=== PATIENT | male | born 1940 | race Caucasian/White ===

== ENCOUNTER 2016-07-23 16:38 | Inpatient (IN) | payer BC ==
--- NOTE | ~2016-07-23 | DS ---
Discharge Summary [facility] [address] [place]. [address] NAME: MARIEL PERES : 40 STATUS : DIS IN PAT#: [id number] AGE: 75 ADM/REG DATE : 07/23/16 MR#: [id number] REPORT SERV DATE: 07/31/16 DICTATED BY: DELTA GARCIA DATE: 07/30/16 REPORT STATUS : Draft TRANSCRIBED BY: MODL DATE: 07/30/16 ADMISSION DATE: 07/23/2016 DISCHARGE DATE: 07/30/2016 PRINCIPAL DIAGNOSIS: Hip fracture, status post total hip repair. SECONDARY DIAGNOSES: Atrial fibrillation, hyponatremia due to syndrome of inappropriate secretion of antidiuretic hormone due to selective serotonin re-uptake inhibitors and antiarrhythmic drugs, urinary retention, abnormal liver function tests. HISTORY OF PRESENT ILLNESS: Please see Dr. Maloney's dictation on 07/23/2016. HOSPITAL COURSE: Please see Dr. Shi's dictation on 07/29/2016. Subsequent hospital course. The patient actually passed physical therapy. He did not wish to wait for rehab given the consideration being turned down, wished to go home with home health. Arrangements were made for home health care. He is able to return home on his home medications with Coumadin prescription and follow up for PT/INR with Dr. Ramesh Rodriguez later on this week. Regular appointment with Dr. Rodriguez in one to two weeks, and Dr. Sandhu as scheduled. Greater than 30 minutes were spent with the patient on discharge planning on discharge day. MADDY/ANDREW Delta Garcia M.D. / [id number] CC: Ced Gramajo MD W. Timothy Ballard, M.D.
--- NOTE | ~2016-07-23 | HP ---
History And Physical [place] [id number] [facility] [place]. [address] NAME: MARIEL PERES : 40 STATUS : ADM IN [facility]#: [id number] AGE: 75 ADM/REG DATE : 07/23/16 MR#: [id number] REPORT SERV DATE: 07/23/16 DICTATED BY: AYLA TATE DATE: 07/23/16 REPORT STATUS : Draft TRANSCRIBED BY: MODL DATE: 07/23/16 DATE OF ADMISSION: 07/23/2016 REASON FOR ADMISSION: Right hip fracture. PRIMARY TECHNICAL SALES ENGINEER: Dr. Galindo and also he sees Dr. Rodriguez in the past. HISTORY OF PRESENT ILLNESS: This is a 75-year-old male. He has a known history of acute blood loss anemia, requiring eight units of blood due to a colonic mass. This was surgically removed in the past. Thankfully, it was non-neoplastic with a resultant right hemicolectomy, known history of atrial fibrillation, on chronic Coumadin and chronic amiodarone and chronic carvedilol; history ischemic cardiomyopathy; history of orthostasis; history of Bi V ICD pacer, sees Dr. Curiel for his electrophysiology needs; known history of significant osteoarthritis; general debility. History of V-tach, hypertension, diverticulosis, WAI, history of [place] apparently, appendectomy, vasectomy, excision of a superficial melanoma on his back. The patient comes in after trying to discipline his dog with a newspaper. Apparently, his dog was on the leash. His dog went a certain direction laterally. The patient's osteoarthritis debilitated in such that he was not able to compensate, fell on his right hip, has a ED interpretation of hip fracture, right, has not been read by the radiologist yet. The patient denies any fevers or chills. No recent nausea, no vomiting, no diarrhea, no chest pain, chest pressure, no shortness of breath, mild nonproductive cough. No melena no hematochezia. No dysuria. PAST MEDICAL HISTORY/PAST SURGICAL HISTORY: See above. REVIEW OF SYSTEMS: Done, see HPI. Otherwise, negative. ALLERGIES: NO KNOWN DRUG ALLERGIES. FAMILY HISTORY: Hypertension at least one parent. SOCIAL HISTORY: Former smoker, maybe about 15-pack years at least. No alcohol. No drug use. OBJECTIVE: VITAL SIGNS: Apparently are 122/68, temperature 98.1, pulse 83, respirations 15, 98% on room air. GENERAL: No acute distress. HEENT: PERRLA. No scleral icterus. CARDIOVASCULAR: Regular rate and rhythm. No murmur auscultated. History And Physical [address] [address] NAME: MARIEL PERES : 40 STATUS : ADM IN [facility]#: [id number] AGE: 75 ADM/REG DATE : 07/23/16 MR#: [id number] REPORT SERV DATE: 07/23/16 DICTATED BY: AYLA TATE DATE: 07/23/16 REPORT STATUS : Draft TRANSCRIBED BY: ANDREW DATE: 07/23/16 RESPIRATORY: Decreased breath sounds bibasilarly. ABDOMEN: Nontender, nondistended. Positive bowel sounds. EXTREMITIES: No edema. No ecchymosis. NEURO: A and O x4/4. GCS 15 psych normal affect and mood. PSYCH: Normal affect and mood. LABORATORY DATA: Lab shows a white count 8.6, hemoglobin 12, platelets 254,000. Potassium 4.9; bicarb 27; creatinine 1.21, baseline is less than 1; BUN 15; sodium 131; sugar 126. INR 2.6. T bilirubin 0.5. AST over ALT is 168 over 183. INR 2.6. ASSESSMENT AND PLAN: 1. Right hip fracture, not confirmed radiographically from radiology. Interpretation is still pending. 2. General debility. Exacerbated by osteoarthritis in bilateral knees. 3. History of paroxysmal atrial fibrillation, on chronic anticoagulation. 4. History of ischemic cardiomyopathy. 5. History of orthostasis. PLAN: We will go ahead and admit this patient hopefully the given possible surgical need. As a result, we will ask for orthopedic surgery evaluation. We will reduce his INR hopefully less than 1.6 to permit ortho surgery. As a result, we will give IV vitamin K at this time and placed on heparin drip. Hold 4 hours prior to procedure. The patient denies any chest pain or chest pressure. No palpitations. Does not have any modifiable cardiac risk to preclude surgery at this time. We will resume his home amiodarone dosing which is 200 p.o. b.i.d. Hepatocellular transaminitis, plan, we will go ahead and admit this patient as stated with ortho surgery evaluation. No modifiable cardiac risk factors to preclude surgery giving his hepatocellular transaminitis and concern about possible amiodarone-associated liver toxicity as he is on 200 b.i.d. We will rule out with hepatitis A, B serologies. He had a CT abdomen and pelvis, elucidate his liver parenchyma, readily nephrolithiasis given his pre renal azotemia. Placed n.p.o. except meds and ice chips. IV Dilaudid for pain control. All questions were answered. It took well over 60 minutes to do. Reference [employer] and [employer]. WST/MODL Ayla Tate DO / [id number] History And Physical [address] [address] NAME: MARIEL PERES : 40 STATUS : ADM IN PAT#: [id number] AGE: 75 ADM/REG DATE : 07/23/16 MR#: [id number] REPORT SERV DATE: 07/23/16 DICTATED BY: AYLA TATE DATE: 07/23/16 REPORT STATUS : Draft TRANSCRIBED BY: ANDREW DATE: 07/23/16 CC: Ced Mitchell
--- NOTE | ~2016-07-23 | OP ---
Record Of Operation [facility] [address] [place]. [address] NAME: MARIEL PERES : 40 STATUS : ADM IN PAT#: [id number] AGE: 75 ADM/REG DATE : 07/23/16 MR#: [id number] REPORT SERV DATE: 07/25/16 DICTATED BY: BRAXTON NESBITT DATE: 07/24/16 REPORT STATUS : Draft TRANSCRIBED BY: MODJames DATE: 07/24/16 DATE OF PROCEDURE: 07/24/2016 PREOPERATIVE DIAGNOSIS: Displaced right femoral neck fracture. POSTOPERATIVE DIAGNOSIS: Displaced right femoral neck fracture. PROCEDURE: Uncemented total hip arthroplasty, Tri-Lock. SIDE: Right. ANESTHESIA: See chart. SIZE: See chart. ESTIMATED BLOOD LOSS: About 100 mL. PROCEDURE: The patient was taken to the operating room and placed supine on the table without incident. Anesthetic was induced per the anesthesiologist. A Mckinley catheter was placed by the nurse in the standard sterile technique. The correct side for the procedure was identified by preoperative markings and matched with the consent form. All personnel in the room were in agreement regarding the procedure, patient, and side. The patient was then carefully positioned and carefully padded and prepped and draped in the normal sterile fashion. The patient received prophylactic preoperative antibiotics at the appropriate time. The preoperative x-ray was brought up on the monitor. Again, this was reviewed with the staff in the room. According with the preoperative plan, and angled, an anterolateral incision was made centered over the trochanter extending from proximal posterior to distal anterior. Electrocautery was used to maintain meticulous hemostasis. The IT band was split in line with its fibers. A Charnley retractor was placed over saline moistened laps. A standard anterolateral approach to the hip was carried out dissecting in line with the vastus medialis fibers lifting the inferior 20% of the vastus medialis, proximally the interior 20% of the gluteus medius and gluteus minimus tendons off the anterior capsule. Periosteal elevator was used to elevate soft tissue gently directly off the proximal anterior femoral bone. Appropriate retractors were carefully placed. Complete anterior capsulectomy was performed. The hip was then carefully dislocated with a combination of traction maneuver by the preschool assistant and scooping the ball out of the socket with a Hohmann. A femoral neck osteotomy was marked according to what had been preoperatively planned with a broach as a template. The distance for the femoral neck osteotomy was measured with a ruler. A femoral neck osteotomy was made with an oscillating saw under appropriate retraction. Meticulous hemostasis was again obtained. The leg was then brought up out of the anterior bag and positioned with the lower extremity in external rotation and slight flexion. Acetabular retractors were placed carefully palpating to be sure that they were directly on the bone. The acetabular labrum was excised with electrocautery and rongeur. Pulvinar fat was removed with a large curette and rongeur and again meticulous hemostasis was obtained. Sequential Record Of Operation [facility] [address] [place]. [address] NAME: MARIEL PERES : 40 STATUS : ADM IN [facility]#: [id number] AGE: 75 ADM/REG DATE : 07/23/16 MR#: [id number] REPORT SERV DATE: 07/25/16 DICTATED BY: BRAXTON NESBITT DATE: 07/24/16 REPORT STATUS : Draft TRANSCRIBED BY: ANDREW DATE: 07/24/16 reamers were used in the acetabulum to 1 mm. less than the final size which was chosen. This was felt to give excellent interference fit. The acetabular fossa was then copiously irrigated with pulsatile lavage and actual acetabular component was placed and impacted and checked to make sure it was down snug. The overall alignment was checked. The acetabular data management was then removed. Screws were placed in the standard fashion. A drill, depth gauge and self tapping screw placement taking care not to plunge as the drill holes were carefully placed. A trial liner was then placed and attention directed back to the proximal femur. The leg was placed back into the anterior bag. The proximal femur was prepared using a box chisel following by a T-handled reamer to determine the intramedullary alignment. This was followed by sequential broaches up to the final broach. Once it was seated in the appropriate position, a Calcar reamer was used to plane the proximal femur. Trial reduction was then done with a trial prosthetic ball and neck. A straight edge was used to compare the tip of the trochanter to center of the ball relationship to what had been noted on the preoperative x-ray. Careful reduction was then done of the total hip. Palpation was done to ascertain and compare leg lengths by palpating the nonoperative leg and also by checking soft tissue tension. The stability of the hip was checked in full extension with full external rotation and in full flexion with adduction, flexion and internal rotation. The hip was then re-dislocated with a bone hook. The femoral trial and femoral broach were removed. The acetabulum was then prepared under appropriate retraction by removing the trial liner. A central hole eliminator was placed and tightened. The shell was irrigated out. The actual insert was placed and impacted and then checked to be sure it was down snug with a joker. The leg was again positioned in the bag. The proximal femur exposed, irrigated and the actual thermal prosthesis was taken from the business center representative and impacted. Once it was down, the trunnion was cleansed with a wet and dry lap and the prosthetic thermal head was placed and impacted and checked to be sure it was down snug. The acetabulum was irrigated and reduction was obtained. Again, we checked soft tissue tension, leg length and stability as described above. The hip was closed in a layered fashion with a 5 mm. Mersilene tape placed through a single drill hole in the proximal anterior/superior trochanter reattaching the gluteus medius and minimus fibers. The vastus lateralis, gluteus medius, and gluteus minimus were then closed in a sleeve. Drain was placed between the vastus and the IT band exiting distally anteriorly. The IT band was closed. Subcutaneous closure and skin closure were then obtained. A sterile dressing was applied. The patient was carefully positioned into a supine position and then awakened. The patient was then carefully transferred to the stretcher to be returned to the postoperative care unit without incident. COMPLICATION: None. SPECIMENS: Right femoral head. WTB/MODL Theodore Curiel Record Of Operation [place] [address] [place]. [address] NAME: MARIEL PERES : 40 STATUS : ADM IN [facility]#: [id number] AGE: 75 ADM/REG DATE : 07/23/16 MR#: [id number] REPORT SERV DATE: 07/25/16 DICTATED BY: BRAXTON NESBITT DATE: 07/24/16 REPORT STATUS : Draft TRANSCRIBED BY: ANDREW DATE: 07/24/16 Ced Nesbitt / [id number] CC: Ced Mitchell MD
--- NOTE | ~2016-07-23 | CN ---
Consultation Report [facility] [address] [place]. [address] NAME: MARIEL PERES : 40 STATUS : ADM IN [facility]#: [id number] AGE: 75 ADM/REG DATE : 07/23/16 MR#: [id number] REPORT SERV DATE: 07/24/16 DICTATED BY: PAXTON ALBERT DATE: 07/24/16 REPORT STATUS : Draft TRANSCRIBED BY: ANDREW DATE: 07/24/16 CARDIOLOGY CONSULTATION. DATE OF CONSULTATION: [facility] PHYSICIAN: Dr. Galindo. INDICATION: A 75-year-old man with hip fracture for preoperative evaluation. HISTORY OF PRESENT ILLNESS: Mr. Peres is a 75-year-old man with a history of coronary artery disease and ischemic cardiomyopathy, well known to Dr. Galindo. Overall, he does fairly well from a cardiac standpoint. He has no chest pain or chest discomfort. He has no palpitations, lightheadedness, dizziness, or syncope. He has no lower extremity edema, PND, or orthopnea. He was walking his dog, trying to discipline him with a newspaper, ended up getting pulled with the leash and falling, sustaining a right hip fracture. He is admitted and consultation is requested. REVIEW OF SYSTEMS: As per the history of present illness. Ten other systems are negative. PAST MEDICAL HISTORY: 1. Hypertension. 2. Hypercholesterolemia. 3. Paroxysmal atrial fibrillation. 4. Ventricular tachycardia and ischemic cardiomyopathy, status post biventricular ICD. 5. Coronary artery disease with ischemic cardiomyopathy, LVEF 35%. 6. History of GI bleed. 7. Chronic kidney disease. 8. COPD. 9. Chronic elevated liver function tests. 10.Chronic anticoagulation followed by primary care physician. FAMILY HISTORY: Positive for hypertension. SOCIAL HISTORY: The patient is . Former smoker. No alcohol. ALLERGIES: NO KNOWN DRUG ALLERGIES. HOME MEDICATIONS: Amiodarone 200 mg p.o. b.i.d.; Norvasc 5 daily; aspirin 81 daily; carvedilol 6.25 mg p.o. b.i.d.; Celebrex; Keflex; vitamin D; Colace; levothyroxine; magnesium oxide; mexiletine 150 p.o. q.12 h.; Prilosec; Zoloft; Flomax; Restoril; and Coumadin as directed. PHYSICAL EXAMINATION: VITAL SIGNS: Heart rate is 80, blood pressure 110/62. Consultation Report [place] [id number] [place]. [address] NAME: MARIEL PERES : 40 STATUS : ADM IN PAT#: [id number] AGE: 75 ADM/REG DATE : 07/23/16 MR#: [id number] REPORT SERV DATE: 07/24/16 DICTATED BY: PAXTON ALBERT DATE: 07/24/16 REPORT STATUS : Draft TRANSCRIBED BY: ANDREW DATE: 07/24/16 GENERAL: The patient is a pleasant, elderly white male, in no apparent distress. HEENT: Conjunctivae are anicteric, no xanthelasma, lips without cyanosis. NECK: Supple, normal JVP, carotids +2 without bruit. LUNGS: Clear to auscultation bilaterally, no wheezes, rales or rhonchi. CARDIOVASCULAR: Regular rate and rhythm. Normal S1 and S2. A 1 to 2/6 systolic ejection murmur. PMI is nondisplaced. ABDOMEN: Soft, nontender, nondistended, with normal bowel sounds. No hepatomegaly. EXTREMITIES: No edema. NEURO/PSYCH: Alert and oriented to person, place and time. No obvious neurologic deficits. Mood and affect normal. DATA: EKG pending. IMPRESSION: 1. Right hip fracture. 2. Ischemic cardiomyopathy. LVEF 35%. 3. Ventricular tachycardia, status post ICD. 4. Paroxysmal atrial fibrillation. 5. Chronic kidney disease. 6. COPD. 7. Chronically elevated liver function tests. 8. Preoperative evaluation. RECOMMENDATIONS: Mr. Peres has moderate cardiovascular risk for hip surgery but no absolute contraindication. He is currently well compensated. I agree with holding Coumadin for surgery and restarting it afterward. I recommend changing his Coumadin to once a day given chronically elevated liver function tests and to continue to follow back up in [facility]madin Clinic in the office. We are available if needed and would be happy to assist in his care if he has a change in his status. Otherwise we expect surgery and transferred to rehab afterward and to follow up in the office. DORIE/ANDREW Paxton Albert M.D., Ph.D, F.A.C.C. / [id number] CC: Ced Mitchell
--- NOTE | ~2016-07-23 | HP ---
History And Physical [address] [place]. [address] NAME: MARIEL PERES : 40 STATUS : ADM IN PAT#: [id number] AGE: 75 ADM/REG DATE : 07/23/16 MR#: [id number] REPORT SERV DATE: 07/24/16 DICTATED BY: BRAXTON SANDHU DATE: 07/24/16 REPORT STATUS : Draft TRANSCRIBED BY: MODL DATE: 07/24/16 DATE OF ADMISSION: 07/23/2016 CHIEF COMPLAINT: Right hip pain. HISTORY: This is a 75-year-old male with severely increasing right hip pain, fell and injured his right hip. Denies pain or injury elsewhere. ALLERGIES: NONE. MEDICATIONS: See chart. PAST MEDICAL HISTORY: Hypertension, heart catheterization, myocardial infarction, depression, history of defib pacemaker. PAST SURGICAL HISTORY: Appendectomy, skin cancer removal, vasectomy. SOCIAL HISTORY: . is here. No reported alcohol or illicit drug use. FAMILY HISTORY: No anesthetic complications. REVIEW OF SYSTEMS: As above. PHYSICAL EXAMINATION: GENERAL: He is alert and oriented x3, in no apparent distress. HEENT: Atraumatic, normocephalic. NECK: Supple. CHEST: Symmetric and nontender. LUNGS: Per AA evaluation. CV: Regular. ABDOMEN: Soft. No masses. EXTREMITIES: Decreased range of motion. Severe pain right hip. Compartment supple. 2+ pulses. Short and externally rotated. Skin is intact. Compartment supple. X-RAY: Displaced right femoral neck fracture. ASSESSMENT: Displaced right femoral neck fracture. PLAN: Right total hip arthroplasty. Risks, benefits, etc. explained. The patient wishes to proceed. WTB/MODL History And Physical [address] [place]. [address] NAME: MARIEL PERES : 40 STATUS : ADM IN PAT#: [id number] AGE: 75 ADM/REG DATE : 07/23/16 MR#: [id number] REPORT SERV DATE: 07/24/16 DICTATED BY: BRAXTON SANDHU DATE: 07/24/16 REPORT STATUS : Draft TRANSCRIBED BY: MODL DATE: 07/24/16 W. Moisés Sandhu M.D. / [id number] CC: Ced Mitchell Charles E
--- NOTE | ~2016-07-23 | IDS ---
Interim Discharge Summary [facility] [address] [place]. [address] NAME: MARIEL PERES : 40 STATUS : ADM IN [facility]#: [id number] AGE: 75 ADM/REG DATE : 07/23/16 MR#: [id number] REPORT SERV DATE: 07/29/16 DICTATED BY: MELANIE NICOLE DATE: 07/29/16 REPORT STATUS : Draft TRANSCRIBED BY: MODL DATE: 07/29/16 ADMISSION DATE: 07/23/2016 DISCHARGE DATE: The patient still hospitalized, today is 07/29/2016. He is waiting for placement approval. I personally saw this patient starting 07/24/2016 until 07/29/2016. The patient's current medical problems: 1. Status post fall, status post right hip fracture, status post right total hip arthroplasty done by Dr. Sandhu. 2. Postsurgical hypotension, resolved. Blood pressure in the normal range. 3. Postsurgical voiding dysfunction, resolved. Able to urinate. 4. Anemia of acute blood loss, postsurgical. Stable hemoglobin and hematocrit. 5. History of atrial fibrillation, rate controlled; history of ventricular tachycardia, stable. Seen by electronic test technician Dr. Galindo, he recommended to continue his amiodarone at the same dose as frequency as at home. 6. Hyponatremia, resolved. Currently sodium at the baseline. He has mild chronic hyponatremia, needs to be on fluid restriction 1800 per 24 hours. 7. Chronic Coumadin anticoagulation with INR 1.8. The patient needs to continue as he does it at home. 8. Congestive heart failure, chronic systolic dysfunction, compensated. 9. Hypothyroidism, controlled. 10.History of biventricular pacemaker placement in the past, stable. CONSULTANTS ON THE CASE: Dr. Sandhu of orthopedist and electronic test technician, Dr. Bonilla and Dr. Galindo. Surgery for right total hip arthroplasty done by Dr. Sandhu on 07/24/2016 for displaced right femoral neck fracture. HISTORY OF PRESENT ILLNESS: Per dictation of Dr. Maloney on 07/23/2016. HOSPITAL COURSE: Briefly, the patient had right femoral neck fracture. He was admitted by Dr. Maloney. I saw the patient next day. Ski Patrol Officer was consulted for cardiac risk evaluation. They were okay with surgery. The patient went through the surgery. He had mild anemia and mild postsurgical hypotension. They both resolved. Currently, he has stable hemoglobin and hematocrit, and his blood pressure currently in the normal range. Dr. Galindo, his electronic test technician saw him inpatient. He recommended to continue his amiodarone and mexiletine at the home dose. He had mildly elevated liver enzymes on admission, but they now improved and electronic test technician recommends to continue amiodarone at the same dose and frequency as he was taking at home. He had also hyponatremia. His sodium came down to 128 then with fluid restriction and recovering after surgery increased to 135, which is his baseline. He has chronic hyponatremia. He is doing well. He was able to void now. His INR is 1.8. He needs to continue Coumadin anticoagulation at the rehab. Interim Discharge Summary [place] [id number] [facility] [place]. [address] NAME: MARIEL PERES : 40 STATUS : ADM IN [facility]#: [id number] AGE: 75 ADM/REG DATE : 07/23/16 MR#: [id number] REPORT SERV DATE: 07/29/16 DICTATED BY: MELANIE NICOLE DATE: 07/29/16 REPORT STATUS : Draft TRANSCRIBED BY: ANDREW DATE: 07/29/16 He needs to continue his Norvasc at 5 mg twice a day, aspirin 81 mg a day, amiodarone 200 mg p.o. twice a day, mexiletine 150 mg p.o. b.i.d., Coreg 6.25 p.o. b.i.d., vitamin D 1000 units daily, Colace 100 mg b.i.d., levothyroxine 50 mcg a day, ferrous sulfate 300 mg p.o. b.i.d., magnesium oxide 400 mg daily, omeprazole 40 mg a day, Zoloft 25 mg a day, Flomax 0.4 mg daily, temazepam 30 mg daily. Coumadin, I recommended to take 3 mg a day with PT/INR done daily and then he needs to have adjustment of his Coumadin dose at snf according to his INR. His goal is INR from 2 to 3. The patient recommended to stop Celebrex. Zofran 4 mg p.o. q.4h p.r.n. for pain, MiraLAX one packet p.o. twice a day p.r.n. The patient currently stable after discharge from rehab. He will need to follow up with Dr. Galindo his electronic test technician and primary care physician Dr. Ramesh Rodriguez. My partner will see this patient starting tomorrow morning and if the patient will be approved he may go to rehab. Also Yamilet, nurse practitioner of Dr. Sandhu will see the patient tomorrow morning and she will take care of pain medications if he needs it. MG/MODL Melanie Nicole M.D. / [id number] CC: Ced Mitchell Charles E William Warren, M.D. W. Timothy Ballard, M.D.
[2016-07-23 15:06] LABS: BASOPHILS 0.5 %; BASOPHILS ABSOLUTE 0.04 10/3/uL (0.0-0.16); EOSINOPHILS 0.5 %; EOSINOPHILS ABSOLUTE 0.04 10/3/uL (0.0-0.53); IMMATURE GRANULOCYTES 0.5 %; IMMATURE GRANULOCYTES ABSOLUTE 0.04 10/3/uL (0.0-0.11); LYMPHOCYTES 10.7 %; LYMPHOCYTES ABSOLUTE 0.92 10/3/uL (0.67-4.30); MEAN CORPUS HGB CONC 34.3 g/dL (32.0-36.0); MEAN CORPUSCULAR HEMOGLOB 28.6 pg (26.0-34.0); MEAN PLATELET VOLUME 8.8 fL (9.2-13.0); MONOCYTES 7.6 %; MONOCYTES ABSOLUTE 0.65 10/3/uL (0.21-1.20); NEUTROPHILS 80.2 %; NEUTROPHILS ABSOLUTE 6.91 10/3/uL (2.02-8.40); PLATELET COUNT 254 10/3/uL (150-400); RBC DISTRIBUTION WIDTH 14.3 % (12.0-16.0); RED CELL COUNT 4.19 10/6/uL (4.7-6.1)
[2016-07-23 15:16] LABS: ER CBC TAT 0 Hrs 13 Mins; MANUAL DIFF NO %; MEAN CORPUSCULAR VOLUME 83.5 fL (80-100); WHITE BLOOD CELLS 8.6 10/3/uL (4.5-10.5)
[2016-07-23 15:18] LABS: INTERNATIONAL NORMAL RATI 2.6 UNITS (-); PARTIAL THROMBO TIME 30.6 SEC (22.5-37.2)
[2016-07-23 15:19] LABS: PROTIME (NOT ORD) 27.4 SEC (12.0-14.5)
[2016-07-23 15:21] LABS: A/G RATIO 1.1 (0.7-1.9); ALKALINE PHOSPHATASE 79 U/L (45-117); BUN (BLOOD UREA NITROGEN) 15 MG/DL (6-23); CALCIUM, SERUM 8.5 MG/DL (8.5-10.4); CHLORIDE, SERUM 94 MMOL/L (96-112); CO2 (CARBON DIOXIDE) 27 MMOL/L (24-34); CREATININE 1.21 MG/DL (0.70-1.30); GFR AFRICAN AMERICAN 67 ML/MIN (>=60); GFR NON AFRICAN AMERICAN 58 ML/MIN (>=60); GLOBULIN 3.5 G/DL (2.5-4.1); GLUCOSE, SERUM 126 MG/DL (60-99); SGOT(AST) 168 U/L (5-40); SGPT(ALT) 183 U/L (5-65); SODIUM, SERUM 131 MMOL/L (135-148); TOTAL BILIRUBIN 0.5 MG/DL (0-1.2); TOTAL PROTEIN 7.2 G/DL (6.0-8.5)
[2016-07-23 15:22] LABS: ALBUMIN 3.7 G/DL (3.5-5.0); POTASSIUM, SERUM 4.9 MMOL/L (3.5-5.3)
[~2016-07-23 16:38] MED LIST: ASAB PO; ATEN25 PO; C5 PO; CENTRUM PO; CORDARONE PO; COREG12 PO; COREG25 PO; COUMADIN3 MG; COUMADIN3 MG PO; COUMADIN4 MG; COUMADIN4 MG PO; DIOVAN HC2 PO; DIOVAN HCT320 MG/25 PO; DSS PO; FLOMAX4 PO; HALF81 PO; JANTOVEN5 MG; K500 PO; L40 PO; LEVOTHYROXIN50 MCG PO; LIPITOR20 PO; MAGOX4 PO; MEXILETINE150 MG OR; NORV5 PO; PACERONE200 MG PO; PRILOSEC40 MG PO; RESTORIL30 MG PO; VITAMIN D1000 UNI1 PO; Z300 PO; ZOLOFT25 MG PO; [UNRECOGNIZED DRUG - OTHER] PO
[2016-07-23] MEDS ORDERED: RESTORIL30 MG PO (16:39)
[2016-07-23] MEDS ORDERED: NORV5 PO (16:39)
[2016-07-23] MEDS ORDERED: ZOLOFT25 MG PO (16:39)
[2016-07-23] MEDS ORDERED: CORDARONE PO (16:39)
[2016-07-23] MEDS ORDERED: MEXITIL 150 MG150 MG PO (16:40)
[2016-07-23] MEDS ORDERED: COUMADIN4 MG PO (16:41)
[2016-07-23] MEDS ORDERED: CELEBREX2 PO (16:42)
[2016-07-23] MEDS ORDERED: COREG6 PO (16:42)
[2016-07-24 05:12] LABS: BASOPHILS 0.6 %; BASOPHILS ABSOLUTE 0.04 10/3/uL (0.0-0.16); EOSINOPHILS 1.8 %; EOSINOPHILS ABSOLUTE 0.12 10/3/uL (0.0-0.53); HEMATOCRIT 31.5 % (40.0-51.0); HEMOGLOBIN 10.8 g/dL (13.6-17.8); IMMATURE GRANULOCYTES 0.4 %; IMMATURE GRANULOCYTES ABSOLUTE 0.03 10/3/uL (0.0-0.11); LYMPHOCYTES 13.2 %; MEAN CORPUS HGB CONC 34.3 g/dL (32.0-36.0); MEAN CORPUSCULAR HEMOGLOB 29.3 pg (26.0-34.0); MEAN CORPUSCULAR VOLUME 85.6 fL (80-100); MEAN PLATELET VOLUME 9.1 fL (9.2-13.0); MONOCYTES ABSOLUTE 0.68 10/3/uL (0.21-1.20); NEUTROPHILS ABSOLUTE 5.05 10/3/uL (2.02-8.40); PLATELET COUNT 226 10/3/uL (150-400); RBC DISTRIBUTION WIDTH 14.2 % (12.0-16.0); RED CELL COUNT 3.68 10/6/uL (4.7-6.1); WHITE BLOOD CELLS 6.8 10/3/uL (4.5-10.5)
[2016-07-24 05:13] LABS: MANUAL DIFF NO %
[2016-07-24 05:42] LABS: BUN (BLOOD UREA NITROGEN) 17 MG/DL (6-23); CALCIUM, SERUM 8.3 MG/DL (8.5-10.4); CHLORIDE, SERUM 93 MMOL/L (96-112); CO2 (CARBON DIOXIDE) 24 MMOL/L (24-34); GFR AFRICAN AMERICAN 76 ML/MIN (>=60); GFR NON AFRICAN AMERICAN 65 ML/MIN (>=60); GLUCOSE, SERUM 118 MG/DL (60-99); PHOSPHORUS, SERUM 3.1 MG/DL (2.5-4.5); POTASSIUM, SERUM 4.7 MMOL/L (3.5-5.3); SODIUM, SERUM 128 MMOL/L (135-148)
[2016-07-24 06:42] LABS: PROCALCITONIN 0.11 ng/mL (<0.5)
[2016-07-24 08:54] LABS: INTERNATIONAL NORMAL RATI 1.8 UNITS (-); PROTIME (NOT ORD) 20.9 SEC (12.0-14.5)
[2016-07-24 09:00] LABS: SGOT(AST) 112 U/L (5-40); SGPT(ALT) 137 U/L (5-65); TROPONIN I <0.02 NG/ML (<0.05)
[2016-07-24 11:08] LABS: ASCORBIC ACID (UR NOT ORDER) NEG (NEG); BILIRUBIN, URINE NEGATIVE (NEG); KETONE, URINE NEGATIVE (NEG); LEUKOCYTE ESTERASE(NOT OR NEG (NEG); WBC (NOT ORDERED) (RFLEX) < 1 (0-5)
[2016-07-25 05:13] LABS: INTERNATIONAL NORMAL RATI 1.6 UNITS (-); PROTIME (NOT ORD) 19.3 SEC (12.0-14.5)
[2016-07-25 05:14] LABS: HEMATOCRIT 28.4 % (40.0-51.0); HEMOGLOBIN 9.8 g/dL (13.6-17.8); MANUAL DIFF YES %; MEAN CORPUS HGB CONC 34.5 g/dL (32.0-36.0); MEAN CORPUSCULAR HEMOGLOB 29.8 pg (26.0-34.0); MEAN CORPUSCULAR VOLUME 86.3 fL (80-100); MEAN PLATELET VOLUME 9.8 fL (9.2-13.0); PLATELET COUNT 197 10/3/uL (150-400); RBC DISTRIBUTION WIDTH 14.2 % (12.0-16.0); RED CELL COUNT 3.29 10/6/uL (4.7-6.1); WHITE BLOOD CELLS 7.8 10/3/uL (4.5-10.5)
[2016-07-25 05:28] LABS: BUN (BLOOD UREA NITROGEN) 19 MG/DL (6-23); CALCIUM, SERUM 8.1 MG/DL (8.5-10.4); CHLORIDE, SERUM 95 MMOL/L (96-112); CO2 (CARBON DIOXIDE) 25 MMOL/L (24-34); CREATININE 1.27 MG/DL (0.70-1.30); GFR AFRICAN AMERICAN 64 ML/MIN (>=60); GFR NON AFRICAN AMERICAN 55 ML/MIN (>=60); GLUCOSE, SERUM 112 MG/DL (60-99); PHOSPHORUS, SERUM 3.4 MG/DL (2.5-4.5); POTASSIUM, SERUM 4.9 MMOL/L (3.5-5.3); SODIUM, SERUM 130 MMOL/L (135-148)
[2016-07-25 06:22] LABS: LYMPHOCYTES 5 %; LYMPHOCYTES ABSOLUTE (CALC) 0.39 10/3/uL (0.67-4.30); MONOCYTES 4 %; MONOCYTES ABSOLUTE (CALC) 0.31 10/3/uL (0.21-1.20); SEGMENTED NEUTROPHIL (0) 91 %; TOTAL NUCLEATED CELLS 100
[2016-07-25 06:23] LABS: PLATELET ESTIMATE ADQ (ADEQUATE); RBC MORPHOLOGY NORM (NORMAL)
[2016-07-26 05:36] LABS: INTERNATIONAL NORMAL RATI 1.5 UNITS (-); PROTIME (NOT ORD) 17.5 SEC (12.0-14.5)
[2016-07-26 05:46] LABS: CALCIUM, SERUM 8.4 MG/DL (8.5-10.4); CHLORIDE, SERUM 95 MMOL/L (96-112); CO2 (CARBON DIOXIDE) 23 MMOL/L (24-34); CREATININE 1.19 MG/DL (0.70-1.30); GFR AFRICAN AMERICAN 69 ML/MIN (>=60); GFR NON AFRICAN AMERICAN 59 ML/MIN (>=60); POTASSIUM, SERUM 4.3 MMOL/L (3.5-5.3); SGOT(AST) 69 U/L (5-40); SGPT(ALT) 73 U/L (5-65); SODIUM, SERUM 129 MMOL/L (135-148); TOTAL BILIRUBIN 0.5 MG/DL (0-1.2)
[2016-07-26 05:48] LABS: ALBUMIN 2.7 G/DL (3.5-5.0); ALKALINE PHOSPHATASE 50 U/L (45-117); BUN (BLOOD UREA NITROGEN) 26 MG/DL (6-23); GLOBULIN 2.8 G/DL (2.5-4.1); GLUCOSE, SERUM 138 MG/DL (60-99); TOTAL PROTEIN 5.5 G/DL (6.0-8.5)
[2016-07-26 06:10] LABS: BASOPHILS 0 %; EOSINOPHILS 0.1 %; EOSINOPHILS ABSOLUTE 0.01 10/3/uL (0.0-0.53); HEMOGLOBIN 7.9 g/dL (13.6-17.8); IMMATURE GRANULOCYTES 0.4 %; IMMATURE GRANULOCYTES ABSOLUTE 0.04 10/3/uL (0.0-0.11); LYMPHOCYTES 10.2 %; MEAN CORPUS HGB CONC 34.8 g/dL (32.0-36.0); MEAN CORPUSCULAR HEMOGLOB 29.7 pg (26.0-34.0); MEAN CORPUSCULAR VOLUME 85.3 fL (80-100); MEAN PLATELET VOLUME 9.6 fL (9.2-13.0); MONOCYTES 8.6 %; MONOCYTES ABSOLUTE 0.84 10/3/uL (0.21-1.20); NEUTROPHILS 80.7 %; NEUTROPHILS ABSOLUTE 7.92 10/3/uL (2.02-8.40); PLATELET COUNT 171 10/3/uL (150-400); RBC DISTRIBUTION WIDTH 14.3 % (12.0-16.0); RED CELL COUNT 2.66 10/6/uL (4.7-6.1); WHITE BLOOD CELLS 9.8 10/3/uL (4.5-10.5)
[2016-07-26 06:15] LABS: HEMATOCRIT 22.7 % (40.0-51.0); MANUAL DIFF NO %
[2016-07-27 06:01] LABS: INTERNATIONAL NORMAL RATI 1.5 UNITS (-); PROTIME (NOT ORD) 18.3 SEC (12.0-14.5)
[2016-07-27 06:10] LABS: BUN (BLOOD UREA NITROGEN) 21 MG/DL (6-23); CALCIUM, SERUM 8.2 MG/DL (8.5-10.4); CHLORIDE, SERUM 95 MMOL/L (96-112); CO2 (CARBON DIOXIDE) 26 MMOL/L (24-34); CREATININE 1.06 MG/DL (0.70-1.30); GFR AFRICAN AMERICAN 79 ML/MIN (>=60); GFR NON AFRICAN AMERICAN 68 ML/MIN (>=60); GLUCOSE, SERUM 92 MG/DL (60-99); SODIUM, SERUM 129 MMOL/L (135-148)
[2016-07-27 06:55] LABS: BASOPHILS 0.3 %; BASOPHILS ABSOLUTE 0.02 10/3/uL (0.0-0.16); EOSINOPHILS 1.9 %; EOSINOPHILS ABSOLUTE 0.15 10/3/uL (0.0-0.53); HEMATOCRIT 25.6 % (40.0-51.0); HEMOGLOBIN 8.9 g/dL (13.6-17.8); IMMATURE GRANULOCYTES 0.4 %; IMMATURE GRANULOCYTES ABSOLUTE 0.03 10/3/uL (0.0-0.11); LYMPHOCYTES 18.9 %; LYMPHOCYTES ABSOLUTE 1.46 10/3/uL (0.67-4.30); MANUAL DIFF NO %; MEAN CORPUS HGB CONC 34.8 g/dL (32.0-36.0); MEAN CORPUSCULAR VOLUME 86.2 fL (80-100); MEAN PLATELET VOLUME 9.6 fL (9.2-13.0); MONOCYTES 9.5 %; MONOCYTES ABSOLUTE 0.73 10/3/uL (0.21-1.20); NEUTROPHILS ABSOLUTE 5.33 10/3/uL (2.02-8.40); PLATELET COUNT 166 10/3/uL (150-400); RBC DISTRIBUTION WIDTH 14.7 % (12.0-16.0); RED CELL COUNT 2.97 10/6/uL (4.7-6.1); WHITE BLOOD CELLS 7.7 10/3/uL (4.5-10.5)
[2016-07-28 05:21] LABS: INTERNATIONAL NORMAL RATI 1.7 UNITS (-); PROTIME (NOT ORD) 19.5 SEC (12.0-14.5)
[2016-07-28 05:23] LABS: HEMATOCRIT 25.5 % (40.0-51.0); HEMOGLOBIN 8.9 g/dL (13.6-17.8)
[2016-07-28 05:26] LABS: CALCIUM, SERUM 7.9 MG/DL (8.5-10.4); CHLORIDE, SERUM 95 MMOL/L (96-112); CO2 (CARBON DIOXIDE) 27 MMOL/L (24-34); CREATININE 0.93 MG/DL (0.70-1.30); GFR AFRICAN AMERICAN 93 ML/MIN (>=60); GFR NON AFRICAN AMERICAN 80 ML/MIN (>=60); GLUCOSE, SERUM 89 MG/DL (60-99); POTASSIUM, SERUM 4.3 MMOL/L (3.5-5.3); SODIUM, SERUM 132 MMOL/L (135-148)
[2016-07-28 05:27] LABS: BUN (BLOOD UREA NITROGEN) 15 MG/DL (6-23)
[2016-07-29 04:44] LABS: HEMATOCRIT 24.5 % (40.0-51.0); HEMOGLOBIN 8.4 g/dL (13.6-17.8)
[2016-07-29 05:01] LABS: BUN (BLOOD UREA NITROGEN) 17 MG/DL (6-23); CALCIUM, SERUM 8.1 MG/DL (8.5-10.4); CHLORIDE, SERUM 93 MMOL/L (96-112); CO2 (CARBON DIOXIDE) 29 MMOL/L (24-34); CREATININE 1.01 MG/DL (0.70-1.30); GFR AFRICAN AMERICAN 84 ML/MIN (>=60); GFR NON AFRICAN AMERICAN 72 ML/MIN (>=60); GLUCOSE, SERUM 102 MG/DL (60-99); POTASSIUM, SERUM 4.3 MMOL/L (3.5-5.3); SODIUM, SERUM 130 MMOL/L (135-148)
[2016-07-29 05:06] LABS: INTERNATIONAL NORMAL RATI 1.8 UNITS (-); PROTIME (NOT ORD) 20.4 SEC (12.0-14.5)
[2016-07-30 04:57] LABS: HEMATOCRIT 24.7 % (40.0-51.0); HEMOGLOBIN 8.3 g/dL (13.6-17.8)
[2016-07-30 05:03] LABS: INTERNATIONAL NORMAL RATI 2.2 UNITS (-); PROTIME (NOT ORD) 24.1 SEC (12.0-14.5)
[2016-07-30] MEDS ORDERED: NORCO1 TA1 PO (13:29)
[2016-07-30] MEDS ORDERED: FERROUS SULF325 M1 PO (13:29)
[2016-07-30] MEDS ORDERED: COUMADIN3 MG (13:30)
[2016-09-17] MEDS ORDERED: MAG OXIDE250 MG PO (19:08)
[2016-09-17] MEDS ORDERED: COREG6 PO (19:08)
[2016-09-17] MEDS ORDERED: SYN.05 PO (19:08)
[2016-09-17] MEDS ORDERED: VITAMIN D31000 UNIT PO (19:08)
[2016-09-17] MEDS ORDERED: FERROUS SULF325 M1 PO (19:09)
[2016-09-17] MEDS ORDERED: CORDARONE PO (19:09)
[2016-09-17] MEDS ORDERED: DSS PO (19:09)
[2016-09-17] MEDS ORDERED: CENTRUM PO (19:09)
[2016-09-17] MEDS ORDERED: ZOLOFT25 MG PO (19:09)
[2016-09-17] MEDS ORDERED: FLOMAX4 PO (19:10)
[2016-09-17] MEDS ORDERED: COUMADIN4 MG PO (19:10)
[2016-09-17] MEDS ORDERED: PRILOSEC40 MG PO (19:10)
[2016-09-17] MEDS ORDERED: ASAB PO (19:10)
[2016-09-17] MEDS ORDERED: MEXILETINE 150MG CAP PO (19:11)
== END 2016-07-30 15:33 | disposition home health service (06) | DRG 470 ==
LOC: ER 16:38 → 3SO 19:49
PROVIDERS: Emergency Medicine; Hospitalist; Internal Medicine; Specialist
PROC: 0SR902A Replacement of Right Hip Joint with Metal on Polyethylene Synthetic Substitute, Uncemented, Open Approach (ICD-10-PCS; principal; 2016-07-23)
PROC: 30233N1 Transfusion of Nonautologous Red Blood Cells into Peripheral Vein, Percutaneous Approach (ICD-10-PCS; 2016-07-26)
DX: S72.001A Fracture of unspecified part of neck of right femur, initial encounter for closed fracture (principal); N17.9 Acute kidney failure, unspecified; E22.2 Syndrome of inappropriate secretion of antidiuretic hormone; I48.0 Paroxysmal atrial fibrillation; I50.22 Chronic systolic (congestive) heart failure; D62 Acute posthemorrhagic anemia; I25.5 Ischemic cardiomyopathy; Z79.01 Long term (current) use of anticoagulants; E03.9 Hypothyroidism, unspecified; E11.9 Type 2 diabetes mellitus without complications; N40.0 Benign prostatic hyperplasia without lower urinary tract symptoms
CPT/HCPCS: 36415; 71010; 72170; 73090-RT; 73120; 73502-RT; 80048; 80053; 81001; 82962; 83036; 83735; 84100; 84145; 84443; 84450; 84460; 84484; 85014; 85018; 85025; 85610; 85730; 86850; 86900; 86901; 86920; 87641; 88305; 88311; 93005; 96374; 96375; 97110-GP; 97116-GP; 97161-GP; 97165-GO; 97530-GP; 97535-GO; 99285; A9270-GY; C1713; C1776; C9113; J0690; J1170; J1885; J1940; J2250; J2274; J2370; J2405; J2710; J2795; J3010; J3430; P9016

== ENCOUNTER 2016-09-17 20:05 | Inpatient (IN) | payer BC ==
--- NOTE | ~2016-09-17 | CN ---
Consultation Report [facility] [address] [place]. [address] NAME: MARIEL PERES : 40 STATUS : ADM IN PAT#: [id number] AGE: 75 ADM/REG DATE : 09/17/16 MR#: [id number] REPORT SERV DATE: 09/18/16 DICTATED BY: DOUGLAS CARTAGENA DATE: 09/18/16 REPORT STATUS : Draft TRANSCRIBED BY: MODL DATE: 09/18/16 CONSULTATION NOTE DATE OF CONSULTATION: 09/18/2016 REASON FOR REQUEST: Evaluation for possible bowel obstruction. HISTORY OF PRESENT ILLNESS: Mr. Peres is a 75-year-old gentleman with multiple medical problems, who presented to the emergency room with a chief complaint of some nausea and vomiting. He states he has had episodes of this for quite some time, but they have never lasted this long. Usually, they only last 6-8 hours and then spontaneously resolve. He does not report any associated abdominal pain with this nausea nor does he report any associated abdominal distention. He denies any precipitating factors or alleviating factors, and he has never sought medical care for this nausea and vomiting. He has a very extensive cardiac history, including atrial fibrillation and congestive heart failure. He was actually an established patient of Dr. Horace Elizabeth who did a colon resection on him less than two years ago and this was complicated by major postop bleed according to the patient and his family and required 12 units of blood and according to him he almost from this surgery. He is on Coumadin for atrial fibrillation. A CT scan was obtained in the emergency room demonstrated nonspecific bowel dilatation, but a transition point could not be identified as there was no oral contrast administered. He reports his last bowel movement was actually yesterday and has been having flatus and states that currently he has absolutely no nausea or vomiting or any abdominal pain. He denies any fever or chills. No other associated symptoms or issues. He is recovering from recent hip surgery that he had just last July after a fall. This was done at this facility by Dr. Sandhu. PAST MEDICAL HISTORY: Significant for atrial fibrillation, hypertension, hyperlipidemia, sleep apnea, coronary artery disease, congestive heart failure, COPD, hypothyroidism. PREVIOUS SURGERIES: Include an appendectomy years ago. The aforementioned right hemicolectomy done by Dr. Horace Elizabeth less than two years ago and recent right hip surgery and he has had a pacemaker defibrillator inserted. Dr. Galindo is his home health rn. ALLERGIES: NO KNOWN DRUG ALLERGIES. MEDICATIONS: Medications taken at home include amiodarone, aspirin, carvedilol, warfarin, vitamins, Colace, iron, Synthroid, magnesium, Prilosec, and Flomax. SOCIAL HISTORY: Denies tobacco or alcohol use. He lives in [place] with his approximately an hour from here. FAMILY HISTORY: Significant for coronary artery disease, diabetes, and hypertension. REVIEW OF SYSTEMS: Consultation Report [place] [address] [facility] [place]. [address] NAME: MARIEL PERES : 40 STATUS : ADM IN PAT#: [id number] AGE: 75 ADM/REG DATE : 09/17/16 MR#: [id number] REPORT SERV DATE: 09/18/16 DICTATED BY: DOUGLAS CARTAGENA DATE: 09/18/16 REPORT STATUS : Draft TRANSCRIBED BY: ANDREW DATE: 09/18/16 Comprehensive 12-point review of systems obtained and completely negative other than what is mentioned in the history of present illness. PHYSICAL EXAMINATION: VITAL SIGNS: Temperature is 97.1, pulse 81, respirations 18, blood pressure 142/83. GENERAL: He is an elderly gentleman who is awake and alert, in no acute cardiopulmonary distress. HEENT: Pupils are equal, round, and reactive to light. Extraocular movements are intact. Conjunctivae not icteric. NECK: Supple. He has no jugular venous distention. No carotid bruits. No cervical lymphadenopathy. PULMONARY: Normal respiratory effort. Breath sounds are clear. CARDIOVASCULAR: Regular rate. ABDOMEN: Soft and completely nondistended and nontender. EXTREMITIES: Reveal no clubbing, cyanosis, or edema. LABORATORY DATA: White blood cell count 6.4, hematocrit 38, platelet count 210. Sodium 133, potassium 4.1, chloride 99, CO2 of 27, BUN 14, creatinine 1.3, glucose 98, albumin 3.1. A CT scan of the abdomen and pelvis without oral contrast or IV contrast was reviewed and states nonspecific bowel dilatation, but no obvious transition point to my read. No free air. He has a rectus diastasis and a questionable small ventral hernia seen on CT that is barely palpable on physical exam. ASSESSMENT: 1. Possible partial small bowel obstruction. 2. Atrial fibrillation. 3. Congestive heart failure. PLAN: Currently, he has a benign exam. He is not very distended, and a CT scan is limited without the benefit of contrast. My recommendation is to proceed with Gastrografin small bowel followthrough to evaluate him further to see if he truly has a mechanical obstruction. He also appeared to have a distended gallbladder on CT, but no obvious gallstones were seen, and an ultrasound of his gallbladder should be obtained as well. For the time being, I would hold his Coumadin until we are certain he is not going to require any surgical intervention. I want to thank you for this consultation. PHAM/ANDREW Douglas Cartagena M.D. Consultation Report [address] [address] NAME: MARIEL PERSE : 40 STATUS : ADM IN PAT#: [id number] AGE: 75 ADM/REG DATE : 09/17/16 MR#: [id number] REPORT SERV DATE: 09/18/16 DICTATED BY: DOUGLAS CARTAGENA DATE: 09/18/16 REPORT STATUS : Draft TRANSCRIBED BY: ANDREW DATE: 09/18/16 / [id number] CC: Ced Mitchell Charles E
--- NOTE | ~2016-09-17 | DS ---
Discharge Summary [facility] [address] [facility] [place]. [address] NAME: MARIEL LOPEZ : 40 STATUS : DIS IN PAT#: [id number] AGE: 75 ADM/REG DATE : 09/17/16 MR#: [id number] REPORT SERV DATE: 09/19/16 DICTATED BY: MELANIE NICOLE DATE: 09/19/16 REPORT STATUS : Draft TRANSCRIBED BY: MODL DATE: 09/19/16 ADMISSION DATE: 09/17/2016 DISCHARGE DATE: 09/19/2016 DIAGNOSES ON ADMISSION: 1. Partial small bowel obstruction. 2. Mild acute kidney injury. 3. Hyponatremia. 4. Transaminitis, chronic in nature. 5. History of chronic congestive heart failure, systolic dysfunction, being compensated. DIAGNOSES ON DISCHARGE: 1. Abdominal pain, nausea, and vomiting, present on admission, resolved. No evidence of small bowel obstruction. Able to have bowel movements and had normal Gastrografin study. Recommended to be discharged per General Surgery. 2. Acute kidney injury, improved, mild prerenal azotemia. The patient needs to drink more fluids. Will check his BMP next week, on 09/26/2016, per primary care physician, Dr. Ramesh Rodriguez. 3. Hyponatremia, present on admission, resolved. 4. Chronic transaminitis, mildly elevated AST and ALT, chronic likely related to amiodarone. 5. Congestive heart failure, chronic systolic dysfunction, compensated. 6. Atrial fibrillation, rate controlled, chronically on Coumadin with therapeutic INR. 7. History of biventricular pacer functioning normally. CONSULTANTS ON THE CASE: General Surgery, Dr. Douglas Morrissey and Dr. Elizabeth. IMAGING STUDIES DONE DURING THIS HOSPITALIZATION: CT of the abdomen and pelvis done on 09/17/2016: Dilated proximal mid small bowel with nondilated distal small bowel indicating probable partial small bowel obstruction. Distinct transition is not identified. Cardiomegaly, calcific atherosclerosis, AICD, minimal nonobstructing right nephrolithiasis, diverticulosis with no evidence of diverticulitis, right hip prosthesis, which produces artifact, limited evaluation of the pelvis. Ultrasound on the gallbladder done on 09/18/2016: Negative examination of the gallbladder, nonobstructing right renal stone. Chest x-ray done on 09/17/2016: No evidence of cardiopulmonary process. Small bowel follow-through series done on 09/18/2016: Mild distended jejunal loops of bowel with normal caliber ileum. Clear transition point is not identified. No significant mechanical obstruction as the colon is reached by the 90 minute time point, within normal limits. Small bowel transit time. HISTORY OF PRESENT ILLNESS: Briefly, Mr. Lopez is a very pleasant 75-year-old male who was admitted by my colleague, Dr. Cristhian Macdonald on 09/17/2016 with complaints of abdominal pain, Discharge Summary [address] [address] NAME: MARIEL LOPEZ : 40 STATUS : DIS IN PAT#: [id number] AGE: 75 ADM/REG DATE : 09/17/16 MR#: [id number] REPORT SERV DATE: 09/19/16 DICTATED BY: MELANIE NICOLE DATE: 09/19/16 REPORT STATUS : Draft TRANSCRIBED BY: ANDREW DATE: 09/19/16 nausea, and vomiting. For the details, see history of present illness dictated by Dr. Macdonald. HOSPITAL COURSE: 1. Briefly, the patient was started on IV fluid hydration as well as he was kept n.p.o. initially and General Surgery was consulted regarding suspicion of possible small bowel obstruction. The patient was evaluated by Dr. Morrissey yesterday and he did not think that there is small bowel obstruction. The patient had small bowel follow-through which looks normal as well as he was started on clear liquids yesterday, which he tolerated very well. The patient was evaluated today by Dr. Elizabeth, his surgeon, and he recommended to give him regular diet, and if the patient is able to eat regular diet, he should be discharged. The patient was able to tolerate regular diet. He does not have any nausea, no vomiting, no abdominal pain, and he is able to eat, so he was discharged today problem. 2. The patient had chronically elevated liver enzymes. On admission, 09/17/2010, his ALT was 136, AST was 100. Today on 09/19/2016, ALT was 131, AST 125. This is a chronic problem and he had similar elevation during previous hospitalization when he had a hip fracture. It was strongly suspected that these elevated liver enzymes are related to his amiodarone, which he takes for ventricular arrhythmia. During last hospitalization, it was also mentioned to his import/export analyst Dr. Galindo who recommended to continue his amiodarone at a dose of once a day and they are also going to monitor his liver enzymes. I recommended the patient to check his liver enzymes, AST and ALT, per primary care physician, Dr. Ramesh Rodriguez. Appointment was made for the patient on 09/26/2016 with Ramesh Rodriguez. As well as he had mild prerenal azotemia secondary to dehydration and his creatinine on admission was 1.57, yesterday was 1.31, today 1.55 since he is already eating and drinking. The patient was recommended to drink plenty of fluids and he was recommended to follow up with Dr. Ramesh Rodriguez on 09/26/2010 to check his BMP again. This was explained to the patient and his . His INR was therapeutic during this hospitalization and it was 2.2. 3. The patient is doing well. He also is supposed to follow up with Dr. Galindo in two weeks. Appointment is made on 10/03/2016 at 8:15. DISCHARGE MEDICATIONS: The patient needs to continue his home medications, which include aspirin 81 mg daily, amiodarone 200 mg a day, carvedilol 6.25 mg p.o. b.i.d., vitamin D 1000 units a day, Colace 200 mg a day, ferrous sulfate 325 p.o. b.i.d., levothyroxine 50 mcg p.o. daily, magnesium oxide 500 mg a day, omeprazole 40 mg a day, Zoloft 25 mg a day, Flomax 0.4 mg a day, multivitamins once a day, Coumadin 4 mg a day, and mexiletine 150 mg p.o. b.i.d. DISPOSITION: The patient was discharged in stable condition. Everything was discussed with the patient and his . I spent 45 minutes on discharge. MG/MODL Discharge Summary [address] [place]. [address] NAME: MARIEL LOPEZ : 40 STATUS : DIS IN PAT#: [id number] AGE: 75 ADM/REG DATE : 09/17/16 MR#: [id number] REPORT SERV DATE: 09/19/16 DICTATED BY: MELANIE NICOLE DATE: 09/19/16 REPORT STATUS : Draft TRANSCRIBED BY: MODJames DATE: 09/19/16 Melanie Nicole M.D. / [id number] CC: Ced Mitchell,RAMESH Galindo M.D.
--- NOTE | ~2016-09-17 | HP ---
History And Physical [facility] [address] [place]. [address] NAME: MARIEL PERES : 40 STATUS : ADM IN [facility]#: [id number] AGE: 75 ADM/REG DATE : 09/17/16 MR#: [id number] REPORT SERV DATE: 09/18/16 DICTATED BY: SUSIE TORRES DATE: 09/17/16 REPORT STATUS : Draft TRANSCRIBED BY: MODJames DATE: 09/17/16 DATE OF ADMISSION: 09/17/2016 POINT OF ENTRY: [facility]. PRIMARY PLASTIC PRESS OPERATOR: Paxton Galindo M.D. CHIEF COMPLAINT: Abdominal pain, nausea, and vomiting. HISTORY OF PRESENT ILLNESS: Mr. Peres is a 75-year-old gentleman with a history of atrial fibrillation, on Coumadin; as well as chronic systolic congestive heart failure; hypertension; hyperlipidemia; and multiple other medical comorbidities who presents to the emergency department today with a two-day history of diffuse abdominal pain with nausea and vomiting, inability to tolerate oral intake. The patient states that his symptoms began around lunchtime on Friday. Shortly after consuming his lunch, he vomited back up again. Beginning then, he has been unable to tolerate any significant solid or liquid intake. Also describes some diffuse crampy abdominal pain. Reports his last bowel was yesterday, was very small in nature, has not had a bowel today. Denies any memory of any flatus today as well. Given his persistent difficulties with nausea, vomiting, and inability to tolerate any oral intake, he presented to the emergency department. The patient states that for the past few months he has had a very similar spells of nausea, vomiting, and inability to tolerate oral intake; however, they are very short lived and usually self resolved, approximately 6 to 10 hours in nature and has not seen a physician for this. Initial evaluation in the emergency department is notable for hyponatremia of 127 and creatinine of 1.57. He has some transaminitis. CT scan of the abdomen and pelvis also shows a partial low-grade small bowel obstruction. The patient was subsequently admitted to the Hospitalist Service for further evaluation and management. The patient denies any fevers, night sweats, chills, chest pain, palpitations, shortness of breath, cough, sputum production, diarrhea, constipation, dysuria, lower extremity edema, melena, hematochezia, or hemoptysis. Comprehensive review of systems otherwise negative unless listed in the history of present illness. PREVIOUS MEDICAL HISTORY: 1. Atrial fibrillation, on Coumadin. 2. Hypertension. 3. Hyperlipidemia. 4. Obstructive sleep apnea, on BiPAP. 5. Coronary artery disease with prior GA. 6. Chronic systolic congestive heart failure, ejection fracture of 35%, status post BiV ICD. History And Physical [address] [address] NAME: MARIEL PERES : 40 STATUS : ADM IN [facility]#: [id number] AGE: 75 ADM/REG DATE : 09/17/16 MR#: [id number] REPORT SERV DATE: 09/18/16 DICTATED BY: SUSIE TORERS DATE: 09/17/16 REPORT STATUS : Draft TRANSCRIBED BY: ANDREW DATE: 09/17/16 7. COPD. 8. Hypothyroidism. 9. Chronic hyponatremia. 10.Melanoma, status post excision. 11.Benign colonic mass, status post right hemicolectomy. PAST SURGICAL HISTORY: 1. Appendectomy. 2. Right hemicolectomy. 3. BiV ICD. 4. Right total hip. ALLERGIES: NO KNOWN DRUG ALLERGIES. HOME MEDICATIONS: 1. Amiodarone 200 mg q.h.s. 2. Aspirin 81 mg daily. 3. Carvedilol 6.25 mg b.i.d. 4. Vitamin D 1000 units daily. 5. Colace 200 mg daily. 6. Ferrous sulfate 325 mg b.i.d. 7. Levothyroxine 50 mcg daily. 8. Magnesium oxide 500 mg daily. 9. Multivitamin one tablet daily. 10.Omeprazole 40 mg daily. 11.Zoloft 25 mg daily. 12.Flomax 0.4 mg q.h.s. 13.Mexiletine 150 mg b.i.d. 14.Coumadin 4 mg q.h.s. SOCIAL HISTORY: Denies any tobacco, alcohol, or illicits. He does have a remote history of smoking, but quit about 35 years ago. FAMILY MEDICAL HISTORY: Mother with coronary artery disease and diabetes. Father with coronary artery disease. Siblings, coronary artery disease and hypertension. LABS AND IMAGIN. White count 8.5, hemoglobin is 14.4, hematocrit is 41.6, and platelet count is 288. INR 1.9. 2. Sodium 127, potassium 4.0, chloride 90, carbon dioxide 31, BUN 13, creatinine 1.57, glucose is 135, calcium is 9.5, protein is 7.4, albumin is 3.7, bilirubin is 1.3, ALT is 136, AST is 100, and alkaline phosphatase is 98. 3. Lipase is 110. 4. CT scan of the abdomen and pelvis shows a dilated proximal and mid small bowel with nondilated distal small bowel indicating probable partial small bowel obstruction, distinct transition is not identified. History And Physical [address] [address] NAME: MARIEL PERES : 40 STATUS : ADM IN [facility]#: [id number] AGE: 75 ADM/REG DATE : 09/17/16 MR#: [id number] REPORT SERV DATE: 09/18/16 DICTATED BY: SUSIE TORRES DATE: 09/17/16 REPORT STATUS : Draft TRANSCRIBED BY: ANDREW DATE: 09/17/16 PHYSICAL EXAMINATION: VITAL SIGNS: Temperature is 97.8 degrees Fahrenheit, pulse is 84, respirations 18, saturating 98% on room air, and blood pressure is 96/64. On recheck, blood pressure now 120/76 and pulse of 80. GENERAL: The patient is awake, alert, in no acute distress, and resting comfortably in bed. He is a well-developed, well-nourished, elderly male. at bedside. HEENT: Atraumatic and normocephalic. Slightly dry mucous membranes. Pupils are equal, round, reactive to light and accommodation. Extraocular eye movements are intact. No scleral icterus. NECK: No jugular venous distention. No carotid bruits. CARDIAC: Regular rate and rhythm. No murmurs, rubs, or gallops. Normal S1, normal S2. LUNGS: Clear to auscultation bilaterally. No wheezes, rhonchi, or crackles. ABDOMEN: Soft. It is diffusely tender to palpation primarily over the epigastrium as well as bilateral lower quadrants. Does have some hypoactive bowel sounds throughout, but no rebound, guarding, or rigidity. EXTREMITIES: Warm and well perfused. No cyanosis, clubbing, or edema. SKIN: Warm and dry. PSYCH: Affect appropriate. NEURO: Alert and oriented x3. Cranial nerves II through XII are grossly intact. Speech is normal. Gait not assessed. ASSESSMENT: Mr. Peres is a 75-year-old gentleman who presents with a two-day history of diffuse abdominal pain with nausea, vomiting, inability to tolerate oral intake and found to have a probable low-grade partial small bowel obstruction as well as acute kidney injury. PROBLEM LIST: 1. Partial small bowel obstruction. 2. Acute kidney injury. 3. Hyponatremia. 4. Transaminitis. 5. History of chronic systolic congestive heart failure. PLAN: 1. Partial small bowel obstruction. We will make the patient nothing by mouth for bowel rest. Provide IV fluid hydration. We will consult General Surgery for assistance with evaluation and management. Hold off on NG tube at this time as the patient is not having any active nausea or vomiting. 2. Acute kidney injury, likely due to poor oral intake. We will hold nephrotoxic medications. Provide gentle IV fluid hydration. Checking urinalysis as well as urine lytes. CT of abdomen and pelvis obstruction. 3. Hyponatremia. 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 Should provide some gentle IV fluid hydration. We will hold off on further workup at this time. 4. Transaminitis. The patient also had transaminitis during his admission back in July. Does not appear to be any workup at this time. However, CT of the abdomen and pelvis is unremarkable for any liver abnormalities. We will check viral hepatitis panel as History And Physical [address] [address] NAME: MARIEL PERES : 40 STATUS : ADM IN [facility]#: [id number] AGE: 75 ADM/REG DATE : 09/17/16 MR#: [id number] REPORT SERV DATE: 09/18/16 DICTATED BY: SUSIE TORRES DATE: 09/17/16 REPORT STATUS : Draft TRANSCRIBED BY: MODJames DATE: 09/17/16 well as a right upper quadrant ultrasound. Of note, the patient is on amiodarone for potential medication-induced transaminitis. 5. Chronic systolic congestive heart failure. The patient currently appears euvolemic at this time. We will provide gentle IV fluid hydration given his n.p.o. status and SWAPNIL. Checking a BNP, chest x-ray, as well as EKG. 6. DVT prophylaxis. The patient is on Coumadin, to be managed by Pharmacy. 7. Code status. The patient wished to be full code. JCB/MODL Susie Torres MD / [id number] CC: Ced Mithcell,AJ Galindo M.D.
[2016-09-17 16:14] LABS: BASOPHILS 0.1 %; BASOPHILS ABSOLUTE 0.01 10/3/uL (0.0-0.16); EOSINOPHILS 0.1 %; EOSINOPHILS ABSOLUTE 0.01 10/3/uL (0.0-0.53); ER CBC TAT 0 Hrs 07 Mins; HEMATOCRIT 41.6 % (40.0-51.0); HEMOGLOBIN 14.4 g/dL (13.6-17.8); IMMATURE GRANULOCYTES 0.2 %; IMMATURE GRANULOCYTES ABSOLUTE 0.02 10/3/uL (0.0-0.11); LYMPHOCYTES ABSOLUTE 1.28 10/3/uL (0.67-4.30); MANUAL DIFF NO %; MEAN CORPUS HGB CONC 34.6 g/dL (32.0-36.0); MEAN CORPUSCULAR HEMOGLOB 30.9 pg (26.0-34.0); MEAN CORPUSCULAR VOLUME 89.3 fL (80-100); MEAN PLATELET VOLUME 9.1 fL (9.2-13.0); MONOCYTES 8.3 %; MONOCYTES ABSOLUTE 0.71 10/3/uL (0.21-1.20); NEUTROPHILS 76.3 %; NEUTROPHILS ABSOLUTE 6.48 10/3/uL (2.02-8.40); PLATELET COUNT 288 10/3/uL (150-400); RBC DISTRIBUTION WIDTH 14.7 % (12.0-16.0); RED CELL COUNT 4.66 10/6/uL (4.7-6.1); WHITE BLOOD CELLS 8.5 10/3/uL (4.5-10.5)
[2016-09-17 16:28] LABS: ALBUMIN 3.7 G/DL (3.5-5.0); ALKALINE PHOSPHATASE 98 U/L (45-117); BUN (BLOOD UREA NITROGEN) 13 MG/DL (6-23); CALCIUM, SERUM 9.5 MG/DL (8.5-10.4); CHLORIDE, SERUM 90 MMOL/L (96-112); CO2 (CARBON DIOXIDE) 31 MMOL/L (24-34); CREATININE 1.57 MG/DL (0.70-1.30); GFR AFRICAN AMERICAN 49 ML/MIN (>=60); GFR NON AFRICAN AMERICAN 42 ML/MIN (>=60); GLOBULIN 3.7 G/DL (2.5-4.1); GLUCOSE, SERUM 135 MG/DL (60-99); SGOT(AST) 100 U/L (5-40); SGPT(ALT) 136 U/L (5-65); SODIUM, SERUM 127 MMOL/L (135-148); TOTAL BILIRUBIN 1.3 MG/DL (0-1.2); TOTAL PROTEIN 7.4 G/DL (6.0-8.5)
[2016-09-17 18:33] LABS: INTERNATIONAL NORMAL RATI 1.9 UNITS (-); PROTIME (NOT ORD) 21.4 SEC (12.0-14.5)
[2016-09-17 18:34] LABS: PARTIAL THROMBO TIME 32.3 SEC (22.5-37.2)
[~2016-09-17 20:05] MED LIST changes: +CELEBREX2 PO; +COREG6 PO; +FERROUS SULF325 M1 PO; +MAG OXIDE250 MG PO; +MEXILETINE 150MG CAP PO; +MEXITIL 150 MG150 MG PO; +NORCO1 TA1 PO; +SYN.05 PO; +VITAMIN D31000 UNIT PO
[2016-09-17 21:20] LABS: ASCORBIC ACID (UR NOT ORDER) NEG (NEG); BILIRUBIN, URINE NEGATIVE (NEG); ER URINALYSIS TAT 0 Hrs 22 Mins; KETONE, URINE NEGATIVE (NEG); LEUKOCYTE ESTERASE(NOT OR NEG (NEG); NITRITE (URINE) POS (NEG); WBC (NOT ORDERED) (RFLEX) 3 (0-5)
[2016-09-18 00:07] LABS: FREE T4 2.25 NG/DL (0.76-1.46); TROPONIN I 0.04 NG/ML (<0.05)
[2016-09-18 00:08] LABS: ULTRASENSITIVE TSH 2.05 MCIU/ML (0.358-3.740)
[2016-09-18 05:01] LABS: BASOPHILS 0.6 %; BASOPHILS ABSOLUTE 0.04 10/3/uL (0.0-0.16); EOSINOPHILS 0.9 %; EOSINOPHILS ABSOLUTE 0.06 10/3/uL (0.0-0.53); HEMOGLOBIN 12.8 g/dL (13.6-17.8); IMMATURE GRANULOCYTES 0.2 %; IMMATURE GRANULOCYTES ABSOLUTE 0.01 10/3/uL (0.0-0.11); LYMPHOCYTES 26.2 %; LYMPHOCYTES ABSOLUTE 1.67 10/3/uL (0.67-4.30); MEAN CORPUS HGB CONC 33.7 g/dL (32.0-36.0); MEAN CORPUSCULAR HEMOGLOB 30.5 pg (26.0-34.0); MEAN CORPUSCULAR VOLUME 90.7 fL (80-100); MEAN PLATELET VOLUME 8.8 fL (9.2-13.0); MONOCYTES 11.6 %; MONOCYTES ABSOLUTE 0.74 10/3/uL (0.21-1.20); NEUTROPHILS 60.5 %; NEUTROPHILS ABSOLUTE 3.86 10/3/uL (2.02-8.40); PLATELET COUNT 210 10/3/uL (150-400); RBC DISTRIBUTION WIDTH 14.7 % (12.0-16.0); RED CELL COUNT 4.19 10/6/uL (4.7-6.1); WHITE BLOOD CELLS 6.4 10/3/uL (4.5-10.5)
[2016-09-18 05:06] LABS: MANUAL DIFF NO %
[2016-09-18 05:08] LABS: INTERNATIONAL NORMAL RATI 1.9 UNITS (-)
[2016-09-18 05:15] LABS: ALBUMIN 3.1 G/DL (3.5-5.0); BUN (BLOOD UREA NITROGEN) 14 MG/DL (6-23); CALCIUM, SERUM 8.7 MG/DL (8.5-10.4); CHLORIDE, SERUM 99 MMOL/L (96-112); CO2 (CARBON DIOXIDE) 27 MMOL/L (24-34); CREATININE 1.31 MG/DL (0.70-1.30); GFR AFRICAN AMERICAN 61 ML/MIN (>=60); GFR NON AFRICAN AMERICAN 53 ML/MIN (>=60); PHOSPHORUS, SERUM 3.7 MG/DL (2.5-4.5); POTASSIUM, SERUM 4.1 MMOL/L (3.5-5.3); SODIUM, SERUM 133 MMOL/L (135-148)
[2016-09-18 05:16] LABS: GLUCOSE, SERUM 98 MG/DL (60-99)
[2016-09-18 09:56] LABS: HEPATITIS B SURFACE ANTIGEN NON-REACTIVE (NON-REACT)
[2016-09-18 10:02] LABS: HEPATITIS B CORE AB IGM NON-REACTIVE (NON-REAC); HEPATITIS C ANTIBODY NON-REACTIVE (NON-REACT)
[2016-09-18 10:04] LABS: HEP A ANTIBODY IGM NON-REACTIVE (NON-REACT)
[2016-09-19 05:49] LABS: INTERNATIONAL NORMAL RATI 2.2 UNITS (-); PROTIME (NOT ORD) 24.6 SEC (12.0-14.5)
[2016-09-19 05:51] LABS: ALKALINE PHOSPHATASE 76 U/L (45-117); BUN (BLOOD UREA NITROGEN) 19 MG/DL (6-23); CALCIUM, SERUM 8.6 MG/DL (8.5-10.4); CHLORIDE, SERUM 105 MMOL/L (96-112); CO2 (CARBON DIOXIDE) 24 MMOL/L (24-34); CREATININE 1.55 MG/DL (0.70-1.30); GFR AFRICAN AMERICAN 50 ML/MIN (>=60); GFR NON AFRICAN AMERICAN 43 ML/MIN (>=60); GLOBULIN 2.9 G/DL (2.5-4.1); GLUCOSE, SERUM 96 MG/DL (60-99); POTASSIUM, SERUM 3.7 MMOL/L (3.5-5.3); SGOT(AST) 125 U/L (5-40); SGPT(ALT) 131 U/L (5-65); SODIUM, SERUM 139 MMOL/L (135-148); TOTAL BILIRUBIN 0.6 MG/DL (0-1.2); TOTAL PROTEIN 5.9 G/DL (6.0-8.5)
[2016-09-19 05:53] LABS: BASOPHILS 0.6 %; BASOPHILS ABSOLUTE 0.03 10/3/uL (0.0-0.16); EOSINOPHILS 1.1 %; EOSINOPHILS ABSOLUTE 0.05 10/3/uL (0.0-0.53); HEMATOCRIT 36.3 % (40.0-51.0); HEMOGLOBIN 12.1 g/dL (13.6-17.8); IMMATURE GRANULOCYTES 0.2 %; IMMATURE GRANULOCYTES ABSOLUTE 0.01 10/3/uL (0.0-0.11); LYMPHOCYTES 22.3 %; LYMPHOCYTES ABSOLUTE 1.03 10/3/uL (0.67-4.30); MEAN CORPUS HGB CONC 33.3 g/dL (32.0-36.0); MEAN CORPUSCULAR HEMOGLOB 30.2 pg (26.0-34.0); MEAN CORPUSCULAR VOLUME 90.5 fL (80-100); MEAN PLATELET VOLUME 9.1 fL (9.2-13.0); MONOCYTES 14.1 %; MONOCYTES ABSOLUTE 0.65 10/3/uL (0.21-1.20); NEUTROPHILS 61.7 %; NEUTROPHILS ABSOLUTE 2.85 10/3/uL (2.02-8.40); PLATELET COUNT 197 10/3/uL (150-400); RBC DISTRIBUTION WIDTH 15.2 % (12.0-16.0); RED CELL COUNT 4.01 10/6/uL (4.7-6.1); WHITE BLOOD CELLS 4.6 10/3/uL (4.5-10.5)
[2016-09-19 05:54] LABS: MANUAL DIFF NO %
== END 2016-09-19 14:51 | disposition home or self-care (01) | DRG 683 ==
LOC: ER 20:05 → 5NO 20:41
PROVIDERS: Emergency Medicine; Hospitalist; Internal Medicine; Nurse Practitioner Acute Care
DX: N17.9 Acute kidney failure, unspecified (principal); E87.1 Hypo-osmolality and hyponatremia; I50.22 Chronic systolic (congestive) heart failure; Z95.810 Presence of automatic (implantable) cardiac defibrillator; K57.90 Diverticulosis of intestine, part unspecified, without perforation or abscess without bleeding
CPT/HCPCS: 71020; 74176; 74250; 76705; 80053; 80069; 80074; 81001; 83690; 83880; 84439; 84443; 84484; 85025; 85610; 85730; 93005; 96374; 99285; A9270-GY; C9113; J2405